=== PATIENT | male | born 1945 | race Caucasian/White ===

== ENCOUNTER 2017-10-31 09:18 | Emergency (ER) | payer OTHER, MEDICARE, BC, SELFPAY ==
[2017-10-31 09:19] VITALS: BP 154/75; PULSE 61; RESP 14; TEMP 36.4; O2SAT 99; BMI 23.5
--- NOTE | 2017-10-31 09:24 | CT_ITS ---
STUDY: CT BRAIN WITHOUT CONTRAST REASON FOR EXAM: Male, 72 years old. Dizziness. Diaphoresis and nausea. RADIATION DOSAGE (If Supplied By Facility): CTDIvol = ( 44.99 ) mGy, DLP = ( 779.24 ) mGycm TECHNIQUE: Transaxial CT imaging of the brain was performed without administration of intravenous contrast material. Individualized dose optimization techniques were used for this CT. COMPARISON: None. FINDINGS: Normal soft tissue structures. Normal calvarium. There is mild cerebral atrophy with widening of the extra-axial spaces and ventricular dilatation. Normal white matter tracts of the cerebral hemispheres. Normal basal ganglia and thalami. Normal brainstem. Normal cerebellum. There is no intracranial hemorrhage. There are no findings of an acute ischemic infarction. Normal visualized paranasal sinuses. CT/Brain/Head without Contrast IMPRESSION: Chronic involutional changes of the brain. Electronically Signed: Mitch Barraza MD at 10:39 EST Tel [phone], Service support ,
--- NOTE | 2017-10-31 09:25 | EKG12_ITS ---
Test Reason : DIZZINESS Blood Pressure : / mmHG Vent. Rate : 068 BPM Atrial Rate : 068 BPM P-R Int : 172 ms QRS Dur : 084 ms QT Int : 380 ms P-R-T Axes : 046 028 072 degrees QTc Int : 404 ms Normal sinus rhythm Nonspecific T wave abnormality Abnormal ECG Confirmed by VERITO CHIN, MYRON ([id number]), assignment editor CHEMO CHAPA ([id number]) on 11/03/2017 2:46:39 PM Referred By: HUSAM Confirmed By:MYRON SELLERS MD
--- NOTE | 2017-10-31 09:40 | RAD_ITS ---
STUDY: X-RAY CHEST REASON FOR EXAM: Male, 72 years old. Shortness of breath. Dizziness. TECHNIQUE: Single AP portable view of the chest. COMPARISON: Comparison is made with prior study dated August 10, 2017. FINDINGS: Stable elevation of the right hemidiaphragm. The lungs are clear. There is no demonstrated pleural abnormality. Normal size heart. Normal mediastinum and shirley. Normal visualized pulmonary arteries. Normal visualized aortic arch and descending thoracic aorta. Normal visualized thoracic spine. Normal visualized ribs, clavicles, and shoulders. There is no demonstrated abnormality of the visualized soft tissue structures of the upper abdomen. RAD/Chest 1 View (Portable) IMPRESSION: Elevation of the right hemidiaphragm. No acute abnormality is seen. Electronically Signed: Mitch Barraza MD at 10:05 EST Tel [phone], Service support ,
[2017-10-31 09:42] LABS: Hematocrit 44.7 % (40-54); Hemoglobin 15.4 g/dl (13.0-16.5); Mean Corp Hgb Conc 34.5 g/gl (32-36); Mean Corpuscular Hgb 30.5 pg (27.0-32.0); Mean Corpuscular Volume 88.5 fL (80-94); Mean Platelet Vol. 10.2 fl (6.2-12.0); Platelet Count 235 K/mm3 (150-450); RBC Distribution Width CV 13.2 % (11.6-14.6); RBC Distribution Width SD 42.5 fl (35.1-43.9); Red Blood Count 5.05 M/mm3 (4.6-6.2); White Blood Count 8.3 K/mm3 (4.4-11.0)
[2017-10-31 09:44] LABS: Scan Indicated on CBC? Y/N NO
--- NOTE | 2017-10-31 09:44 | ED.DCSUM_ITS ---
- ER Visit Summary Date of Service: 10/31/17 Chief Complaint: [] Dizzy since September History of Present Illness: The patient is a 72 M [] diabetes oral meds insulin as needed, hypertension, high cholesterol, reports since September he has had intermittent spells of dizziness to primarily affect him when he lays down to go to sleep he feels a constant sense of spinning sometimes the dizziness actually wakes him up. During the day he is able to go about his normal activities with very little periods of dizziness. He has no complaints of headache change in vision no mental cloudiness no chest pain abdominal pain or paresthesias. He has no history of stroke seizures ME PE DVT he has no history of any GI elements. His bowel bladder habits were normal constitutional review of systems are negative. He reports today he explains the dizziness is persisted into the morning and he came in for evaluation and again he complains of a spinning sensation. He has no complaints of tinnitus no change in vision normal mental status normal speech, he has no complaints of weakness of any kind Physical Examination: [] His vital signs are unremarkable he is resting comfortably in the bed his speech is clear and his understand his cranial nerves are negative no nystagmus excellent movements are full the TMs are clear the neck is supple moving his head and his neck does not cause dizziness heart tones are regular the abdomen is soft nontender lungs are clear upper lower extremities unremarkable he has full range of motion there is no nystagmus type movements. There is no ataxia to extremity movements he is able to stand and walk he feels a sense of dizziness but there is no ataxia he is able to walk his NIH is 0 Test Results: [] Emergency Department Course and Treatment: [] Comprehensive evaluation Since head CT EKG labs are all generally unremarkable see these reports Reevaluate him he is resting comfortably has no symptoms he feels fine and back to baseline he is not dizzy I explained to him and his that the exact etiology of this dizziness that he has had for many months is unclear we could arrange for admission for further management however he declined that stating he preferred outpatient management, he has walking aids that he can use he will avoid driving the car doing anything that could place him at risk, he will be referred to neurology Antivert and will return for change in symptoms he understands the concept of stroke and other life-threatening conditions but again he declined admission and wants to be managed as an outpatient Treatment Plan: [] Disposition: [] Home stable Impression: [] Intermittent dizziness etiology unclear patient declined admission This note was generated with [employer] dictation software. It may contain incorrect words, spelling, and punctuation that were not noted in review of the chart prior to signing ED Disposition - Plan for ED Patient: Chief Complaint: Dizziness [facility] [[facility] Care Provider] -
[2017-10-31 09:59] LABS: Anion Gap 6 (5-15); BUN 24 mg/dL (7-18); BUN/Creat Ratio 23.1 RATIO (10-20); Calcium,Total 9.5 mg/dL (8.5-10.1); Chloride 102 mmol/L (98-107); Creatinine, Serum 1.04 mg/dL (0.70-1.30); EST Glomerular Filtration Rate 75 mL/min (>60); Est Glom Filt Rate - Afr Amer 91 mL/min (>60); Estimated Creatinine Clearance 70.39 ml/min; Glucose 281 mg/dL (74-106); Sodium Level 137 mmol/L (136-145)
[2017-10-31 11:07] LABS: Bacteria 0 SEEN /hpf (None Seen); Mucous, Urine 0 SEEN /hpf (<or=2+); Red Blood Cells-Urine 0 SEEN /hpf (0-5); Squamous Epithelial Cells - UA 0 SEEN /hpf (0-5); White Blood Cells 0 SEEN /hpf (0-5)
[2017-10-31 11:09] LABS: Color, Urine Yellow (Yellow); Glucose, Dipstick 1000 mg/dl (Normal); Ketone-Dipstick Negative (Negative); Leukocyte Esterase-Dipstick Negative /ul (Negative); Nitrite-Dipstick Negative (Negative); Occult Blood-Urine Negative /ul (Negative); Protein-Dipstick Negative (Negative); Specific Gravity, Urine 1.015 (1.002-1.030); Urine Bilirubin Dipstick Negative (Negative); Urine Clarity Clear (Clear); Urine Urobilinogen Normal (Normal)
[2017-10-31 12:22] VITALS: BP 121/78; RESP 18
--- NOTE | 2017-10-31 13:11 | ED.DEP ---
ED Disposition - Plan for ED Patient: Chief Complaint: Dizziness Instructions: ED Dizziness [facility] Prescriptions: Meclizine HCl [Antivert] 25 mg PO TID PRN PRN #20 tab PRN Reason: Dizziness [facility]errals: [facility] [Primary Care Provider] - Rod Roy MD [STAFF PHYSICIAN] -
[2017-10-31 13:45] VITALS: BP 115/68; RESP 18
== END 2017-10-31 13:46 | disposition home or self-care (01) ==
PROVIDERS: Emergency Provider Emergency Medicine
DX: R42 Dizziness and giddiness (principal); E11.9 Type 2 diabetes mellitus without complications; I10 Essential (primary) hypertension; E78.00 Pure hypercholesterolemia, unspecified
CPT/HCPCS: 70450; 71045; 80048; 81001; 84484; 85027; 93005; 99283; A4216

== ENCOUNTER → 2018-03-09 08:47 | Outpatient (CLI) | payer MEDICARE, BC, OTHER, SELFPAY ==
[2018-03-09 11:01] LABS: CREATININE FINGERSTICK 0.8 mg/dL (0.70-1.30); EGFR FINGERSTICK > 60.0000 mL/min (>60)
--- NOTE | 2018-03-09 11:30 | MRI_ITS ---
STUDY: MRI BRAIN WITH AND WITHOUT CONTRAST REASON FOR EXAM: Male, 73 years old. Vertigo. TECHNIQUE: Standardized multiplanar fat and water weighted pulse sequences were obtained. 8 ml of Gadavist contrast material was administered intravenously for the contrast portion of the examination. COMPARISON: CT October 31, 2017. FINDINGS: Normal size of the ventricles and extra-axial spaces for the patient's age. There are a limited number of small white matter hyperintensities, distributed throughout the deep white matter tracts of the cerebral hemispheres, consistent with mild chronic white matter ischemic changes. There is no evidence for recent intracranial ischemia or other cause of cytotoxic edema on diffusion weighted imaging (DWI). Normal T2* images of the brain without demonstrated susceptibility artifact. There is no demonstrated hemosiderin stain. Normal bilateral basal ganglia. Normal thalami. There is no extra-axial fluid accumulation. Normal flow voids within the major intracranial circulation suggesting patency by spin echo criteria. Normal venous enhancement. There is no enhancing intra-axial or extra-axial abnormality. Normal sella turcica, pituitary gland, infundibular stalk, optic chiasm and hypothalamus. Normal tectal plate and pineal gland. Normal midbrain, brianna and medulla. Normal cerebellum. Normal basal cisterns. Normal bilateral temporal bones. Normal bilateral internal auditory canals. No demonstrated orbital abnormality, within the constraints of a routine brain study. Normal visualized paranasal sinuses. Normal calvarium and skull base. Normal visualized soft tissue structures. Normal visualized upper cervical spine. MRI/Brain W/WO Contrast IMPRESSION: Involutional changes of the brain, as described above. Electronically Signed: Armaan Leach MD at 12:08 EDT , Service support ,
--- NOTE | 2018-03-09 12:32 | EEG ---
- Electroencephalogram This is a 18 channel electroencephalogram performed on this 73-year-old male with a history of external vomiting and dizziness associated with sweating. There is no history of head injury or seizure. International 10-20 electrode placement protocol is utilized as well as hyperventilation, photic simulation and EKG reference leads. Hyperventilation is performed with good effort for 3 minutes with no lateralizing or epileptiform changes. The post hyperventilatory phase was unremarkable. The patient remained awake throughout the recording. Background activity was 8-10 Hz symmetrically in the posterior leads which attenuates with eye opening. Photic stimulation generates a normal symmetric driving response. There are no lateralizing or epileptiform changes throughout the recording. Impression: Normal electroencephalogram.
== END ==
PROVIDERS: Visit Provider Psychiatry & Neurology Neurology
DX: R56.9 Unspecified convulsions (principal); R42 Dizziness and giddiness
CPT/HCPCS: 70553; 95819; A9585

== ENCOUNTER 2023-07-14 12:03 | Emergency (ER) | payer OTHER, SELFPAY ==
[2023-07-14 12:04] VITALS: BP 113/72; PULSE 61; RESP 18; TEMP 36.4; BMI 22.3
--- NOTE | 2023-07-14 12:28 | CT_ITS ---
STUDY: CT ABDOMEN AND PELVIS WITH CONTRAST REASON FOR EXAM: Male, 78 years old. Abdominal pain, diarrhea RADIATION DOSAGE (If Supplied By Facility): CTDIvol = ( 11.31 ) mGy, DLP = ( 504.77 ) mGycm TECHNIQUE: Transaxial images were obtained from the dome of the diaphragm to the symphysis pubis without oral contrast. IV 100mL Isovue-300 was administered. Sagittal and coronal images were reconstructed. Individualized dose optimization techniques were used for this CT. COMPARISON: None. FINDINGS: Calcified granuloma in the left lower lobe. Coronary artery calcification. There is decreased attenuation of the liver consistent with steatosis. Normal gallbladder and extrahepatic biliary system. Normal spleen. Normal pancreas. Normal bilateral adrenal glands. Normal right kidney. Normal left kidney. There is a small hiatal hernia. Normal small intestine. There are multiple colonic diverticula consistent with diverticulosis. Moderate amount of fecal material is seen in the colon. The appendix is visualized and appears normal. There is scattered atherosclerotic calcification of the abdominal aorta and its major visceral branches, without a demonstrated aneurysm. Normal inferior vena cava. Normal retroperitoneum. Normal urinary bladder. There is enlargement of the prostate gland. The prostate measures 3.8 cm by 6 cm. Calcifications are seen within it. Small umbilical hernia containing fat. Small left inguinal hernia containing Normal osseous structures. CT/Abdomen/Pelvis W IV Cont ONLY IMPRESSION: Sigmoid diverticulosis. Moderate amount of fecal material is seen in the colon. Fatty infiltration of the liver. Small umbilical hernia and left inguinal narrowing containing fat. Electronically Signed: Mitch Barraza MD at 14:17 EST ,
--- NOTE | 2023-07-14 12:30 | ED.VIS.GI ---
HPI HPI - GI History of Present Illness Chief Complaint: Abd Pain Narrative Narrative: 78-year-old male who denies significant past medical history except for diabetes and hypertension presents with nausea, vomiting, and diarrhea that he has had for the last 4 days. He states his symptoms began on Monday, with nausea and vomiting. Approximately 1 day later he developed copious amounts of watery stool without any blood in his stool. He also denies any blood in his emesis. Yesterday, he went to urgent care who told him that it was most likely a virus that was running its course. He presents to the emergency department today because today he felt lightheaded, flushed, experienced nausea and vomiting, then had diarrhea again. He might have slight abdominal pain and cramping diffusely. No prior past surgical history. He denies any exacerbating or alleviating factors but states his nausea has resolved, but he is still having diarrhea. He did not have any prodromal chest pain or shortness of breath or any other symptoms prior to this. [facility] Medical History DMII (diabetes mellitus, type 2) HTN (hypertension) Home Medications glyburide 5 mg tablet 5 mg G-tube BIDCM 02/11/17 [History Last Taken 10/31/17] insulin glargine 100 unit/mL subcutaneous solution (Lantus U-100 Insulin) 10 unit SQ QHS 02/11/17 [History Last Taken 10/31/17] lisinopril 20 mg tablet (Zestril) 20 mg PO DAILY 02/11/17 [History Last Taken 10/31/17] metformin 1,000 mg tablet 1,000 mg PO BID 02/11/17 [History Last Taken 10/31/17] simvastatin 80 mg tablet 40 mg PO QHS 02/11/17 [History Last Taken 10/31/17] meclizine 25 mg tablet 25 mg PO TID PRN PRN Dizziness #20 tabs 10/31/17 [Rx Last Taken Unknown] ondansetron 4 mg disintegrating tablet 4 mg PO Q6H PRN nausea and vomiting #15 tabs 07/14/23 [Rx Last Taken Unknown] Allergy/AdvReac Type Severity Reaction Status Date / Time No Known Allergies Allergy Verified 07/14/23 12:04 Social History Smoking Status: Never smoker ROS ROS ED ROS Narrative Constitutional: No fever, no chills. HEENT: No sore throat. No neck pain. No loss of vision. No rhinorrhea. Cardiovascular: No chest pain. No palpitations. No pedal edema. Respiratory: No cough, no shortness of breath. Abdominal: Is, crampy abdominal pain. In the last 24 hours, 1 episode of nausea and vomiting without hematemesis. 1 episode of diarrhea, also nonbloody. Genitourinary: No dysuria. No hematuria. Musculoskeletal: No myalgias. No arthralgias. Neurologic: No headaches. No dizziness. Did flushed and lightheadedness and resolved. Skin: No rash. No change in color. Psychiatric: No depression. No anxiety. EXAM Physical Exam Narrative Exam Narrative: Afebrile. Vital signs noted. HEENT: Normocephalic. Atraumatic. PERRL, EOMI. Neck soft and supple. No point tenderness or step off. Moist mucous membranes. Cardiovascular: Regular rate and rhythm. No murmurs, rubs, or gallops appreciated. Respiratory: No tachypnea. Lungs clear to auscultation bilaterally. Gastrointestinal: Abdomen soft, all, diffuse tenderness with normoactive bowel sounds. No rebound or guarding. Neurological: Awake. Alert. Nonfocal, nonlateralizing. Skin: No rash. Normal color. No pallor. Musculoskeletal: No pedal edema. Full range of motion extremities. Const Vital Signs: 07/14/23 12:04 Temperature 97.5 F L Temperature Source Temporal Pulse Rate 61 Respiratory Rate 18 Blood Pressure 113/72 Blood Pressure Mean 85 Oxygen Delivery Method Room Air MDM MDM MDM Narrative Medical decision making narrative: Differential diagnosis is gastroenteritis versus colitis, I have low suspicion for diverticulitis based on his examination. He is afebrile here. I do feel CT imaging is indicated given his continued diarrhea. He could also have mild dehydration or intravascular volume depletion which caused his vasovagal episode of near syncope today. Reviewed his laboratory work and he has slightly elevated white count of 12.5 which I think is nonspecific, hemoglobin normal at 16.1, platelet count normal at 254. CMP is grossly unremarkable except for BUN slightly elevated 28 with a normal creatinine 1.08, sodium normal at 138, potassium also normal at 4.4. AST is slightly low at 9 with normal ALT of 31 with alk phos slightly elevated at 146 which I also think is nonspecific. Lipase is normal 58. I have low concern for pancreatitis as a cause of his nausea and vomiting. Urinalysis is negative for infection, I do not feel antibiotics are indicated, he has slight ketones at 15 in the urine. He was bolused normal saline 1 L intravenously. And later he requested something for nausea although initially he had declined. I reviewed the CT report of the abdomen and pelvis with IV contrast and there is no acute process. No diverticulitis or obstruction. He does have stool within the colon. He will take an [id number] stool softener. I wrote him a prescription for a few Zofran ODT's. At this point in time, I feel he can be discharged safely home with follow-up. He states he feels improved and rested. Return instructions to the emergency department were reviewed. Patient agreeable to the plan. Disposition is discharged home in stable condition. History & Record Review Discussion w/independent historian: Patient Additional record(s) reviewed:: Prior ED visit and Prior labs Lab Data Attestation: I reviewed the patient's lab results. Labs: Laboratory Results - last 24 hr 07/14/23 07/14/23 12:45 13:10 WBC 12.5 H RBC 5.23 Hgb 16.1 Hct 47.2 MCV 90.2 MCH 30.8 MCHC 34.1 RDW Std Deviation 43.1 RDW Coeff of Master 13.1 Plt Count 254 MPV 10.2 Immature Gran % (Auto) 0.400 Neut % (Auto) 65.7 Lymph % (Auto) 12.0 L [place] % (Auto) 4.6 Eos % (Auto) 16.5 H Baso % (Auto) 0.8 Absolute Neuts (auto) 8.2 H Absolute Lymphs (auto) 1.50 Nucleated RBC % 0 Sodium 138 Potassium 4.4 Chloride 103 Carbon Dioxide 28.0 Anion Gap 7 BUN 28 H Creatinine 1.08 Estim Creat Clear Calc 59.73 Est GFR (MDRD) Af Amer 85 Est GFR (MDRD) Non-Af 71 BUN/Creatinine Ratio 25.9 H Glucose 216 H Calcium 9.6 Total Bilirubin 0.50 AST 9 L ALT 31 Alkaline Phosphatase 146 H Total Protein 7.2 Albumin 3.4 Globulin 3.8 Albumin/Globulin Ratio 0.9 Lipase 58 Urine Color Yellow Urine Clarity Clear Urine pH 6.0 Ur Specific Harold 1.015 Urine Protein 15 H Urine Glucose (UA) 1000 H Urine Ketones 15 H Urine Occult Blood Negative Urine Nitrite Negative Urine Bilirubin Negative Urine Urobilinogen Normal Ur Leukocyte Esterase Negative Urine RBC 0 SEEN Urine WBC 0 SEEN Ur Squamous Epith Cells 0 SEEN Urine Bacteria 0 SEEN Urine Mucus 0 SEEN Radiography Diagnostic Testing: Clinical Impression(s) from Imaging Studies Abdomen/Pelvis CT 07/14/23 12:28 IMPRESSION: Sigmoid diverticulosis. Moderate amount of fecal material is seen in the colon. Fatty infiltration of the liver. Small umbilical hernia and left inguinal narrowing containing fat. Electronically Signed: Mitch Barraza MD at 14:17 EST , Discharge Plan Triage Chief Complaint: Abd Pain ED Provider: Tom Dimas Dx/Rx/DC Orders Clinical Impression: Nausea, vomiting, and diarrhea, Near syncope Instructions: ED Diarrhea, Unknown Cause, ED Near-Fainting, Uncertain Cause Prescriptions: New ondansetron 4 mg tablet,disintegrating 4 mg PO Q6H PRN (Reason: nausea and vomiting) Qty: 15 0RF No Action insulin glargine [Lantus U-100 Insulin] 100 UNIT/ML solution 10 unit SQ QHS glyburide 5 MG tablet 5 mg G-tube BIDCM lisinopril [Zestril] 20 MG tablet 20 mg PO DAILY simvastatin 80 MG tablet 40 mg PO QHS metformin 1,000 MG tablet 1,000 mg PO BID meclizine 25 MG tablet 25 mg PO TID PRN PRN (Reason: Dizziness) Qty: 20 0RF [facility] [Primary [facility] Provider] - 1 Week if not improving Disposition Disposition: Home, Self Care
[2023-07-14 13:00] LABS: Absolute Neutrophil Count 8.2 X10^3/uL (2.0-7.7); Basophil% 0.8 % (0-1); Eosinophils% 16.5 % (0-5); Hematocrit 47.2 % (40-54); Hemoglobin 16.1 g/dL (13.0-16.5); Mean Corp Hgb Conc 34.1 g/dL (32-36); Mean Corpuscular Hgb 30.8 pg (27.0-32.0); Mean Corpuscular Volume 90.2 fL (80-94); Mean Platelet Vol. 10.2 fl (6.2-12.0); Monocyte# 0.57 X10^3/uL; Monocyte% 4.6 % (0-10); NRBC Flagged by Analyzer 0 % (0-5); Neutrophil # 8.22 X10^3/uL (2.7-7.7); Neutrophil % 65.7 % (47-70); POSITIVE DIFFERENTIAL YES; Platelet Count 254 K/mm3 (150-450); RBC Distribution Width CV 13.1 % (11.6-14.6); RBC Distribution Width SD 43.1 fl (35.1-43.9); Red Blood Count 5.23 M/mm3 (4.6-6.2); White Blood Count 12.5 K/mm3 (4.4-11.0)
[2023-07-14 13:04] LABS: Differential Indicated SCAN CRITERIA MET; Eosinophil# 2.07 X10^3/uL
[2023-07-14] MEDS: 0.9% Normal Saline (1000mL) 1,000 ML 1000 ML IV (13:10)
[2023-07-14 13:13] LABS: ALB/GLOB Ratio 0.9 RATIO (0.9-2.4); AST(SGOT) 9 U/L (15-37); Alanine Aminotransfer ALT/SGPT 31 U/L (16-61); Albumin, Serum 3.4 g/dL (3.2-5.0); Alkaline Phosphatase 146 U/L (45-117); Anion Gap 7 (5-15); BUN 28 mg/dL (7-18); BUN/Creat Ratio 25.9 RATIO (10-20); Calcium,Total 9.6 mg/dL (8.5-10.1); Chloride 103 mmol/L (98-107); Creatinine, Serum 1.08 mg/dL (0.70-1.30); EST Glomerular Filtration Rate 71 mL/min (>60); Est Glom Filt Rate - Afr Amer 85 mL/min (>60); Estimated Creatinine Clearance 59.73 ml/min; Globulin 3.8 g/dL (2.2-4.2); Glucose 216 mg/dL (74-106); Lipase 58 U/L (13-75); Potassium 4.4 mmol/L (3.5-5.1); Protein, Total 7.2 g/dL (6.4-8.2); Sodium Level 138 mmol/L (136-145)
[2023-07-14 13:16] LABS: Bacteria 0 SEEN /hpf (None Seen); Mucous, Urine 0 SEEN /hpf (<or=2+); Red Blood Cells-Urine 0 SEEN /hpf (0-5); Squamous Epithelial Cells - UA 0 SEEN /hpf (0-5); White Blood Cells 0 SEEN /hpf (0-5)
[2023-07-14 13:23] LABS: Color, Urine Yellow (Yellow); Glucose, Dipstick 1000 mg/dl (Normal); Ketone-Dipstick 15 mg/dl (Negative); Leukocyte Esterase-Dipstick Negative /ul (Negative); Nitrite-Dipstick Negative (Negative); Occult Blood-Urine Negative /ul (Negative); Protein-Dipstick 15 mg/dl (Negative); Specific Gravity, Urine 1.015 (1.002-1.030); Urine Bilirubin Dipstick Negative (Negative); Urine Clarity Clear (Clear); Urine Urobilinogen Normal (Normal)
[2023-07-14] MEDS: Ondansetron 4 MG/2 ML Vial IV (14:22)
[2023-07-14 14:43] VITALS: BP 141/87; PULSE 89; RESP 16; O2SAT 99
== END 2023-07-14 14:45 | disposition home or self-care (01) ==
PROVIDERS: Emergency Provider Emergency Medicine; Visit Provider Emergency Medicine
DX: R11.2 Nausea with vomiting, unspecified (principal); E11.9 Type 2 diabetes mellitus without complications; I10 Essential (primary) hypertension; R55 Syncope and collapse; R19.7 Diarrhea, unspecified; K57.30 Diverticulosis of large intestine without perforation or abscess without bleeding
CPT/HCPCS: 74177; 80053; 81001; 83690; 85025; 96361; 96374; 99283; J7030; Q9967; A4216; J2405

== ENCOUNTER → 2023-07-18 | Outpatient (CLI) | payer OTHER, SELFPAY ==
--- NOTE | 2023-07-18 07:27 | US_ITS ---
EXAM: US ABDOMEN LIMITED, RIGHT UPPER QUADRANT CLINICAL INDICATION: ELEVATED LFTS TECHNIQUE: Real-time ultrasound of the right upper quadrant with image documentation. COMPARISON: CT scan of the abdomen and pelvis 07/14/2023. FINDINGS: LIVER: Liver measures 14.3 cm. Increased echogenicity of the liver. No intrahepatic biliary ductal dilation. GALLBLADDER: Unremarkable. No shadowing gallstone. No gallbladder wall thickening is demonstrated. No pericholecystic fluid. Negative sonographic Najera''s sign. COMMON BILE DUCT: Unremarkable as visualized. The proximal common bile duct is within normal limits for the patient''s age. PANCREAS: Unremarkable as visualized. No focal abnormality is demonstrated in the pancreas. No pancreatic ductal dilatation. RIGHT KIDNEY: Unremarkable. There is no hydronephrosis. No shadowing calculus. No focal lesion or perinephric collection is demonstrated. US/Abdomen Limited IMPRESSION: Fatty liver. Electronically Signed: Estevan Valencia MD at 15:57 EST ,
== END | disposition home or self-care (01) ==
DX: K76.0 Fatty (change of) liver, not elsewhere classified (principal)
CPT/HCPCS: 76705

== ENCOUNTER → 2024-09-27 | Outpatient (CLI) | payer OTHER, SELFPAY ==
--- NOTE | 2024-09-27 13:50 | CT_ITS ---
PROCEDURE: LIMITED CHEST CT CARDIAC ONLY REASON FOR EXAM: Hyperlipidemia. Coronary artery assessment. TECHNIQUE: Chest CT without contrast. COMPARISON: None. FINDINGS: Hardware: None. Lymph nodes: No mediastinal hilar or axillary lymphadenopathy. Heart and Vasculature: Minimal anterior pericardial thickening. Atherosclerotic calcifications of the thoracic aorta. Thoracic aorta and pulmonary arteries have normal contours; noncontrast technique limits evaluation. Coronary Artery Calcifications: Present Lungs and Airways: Calcified granuloma in the left lower lobe. Pleura: No pleural effusion. No pneumothorax. Upper Abdomen: Fatty infiltration of the liver. Small hiatal hernia. Bones: Bone windows are unremarkable. CT/Limited Chest CT Cardiac Only IMPRESSION: Coronary artery calcification. Minimal anterior pericardial thickening. Fatty infiltration of the liver. One or more dose reduction techniques were used (e.g., Automated exposure contr ol, adjustment of the mA and/or kV according to patient size, use of iterative reconstruction technique). Reading Location: [place] [id number]
--- NOTE | 2024-09-27 16:37 | CA.SCORE ---
Calcium Scoring Date of Study:: 09/27/24 Indications Indications: Lipid level eval Coronary Calcium Scoring: High-resolution Computed Tomographic imaging of the chest was performed on [ ], with particular attention paid to the coronary arteries. Images from the examination were analyzed for the presence and extent of coronary artery calcification , using coronary calcium quantification software. The patient tolerated the procedure well and there were no complications. The results of the coronary calcification analysis are provided below. Findings Coronary Artery Left Main (LM): 21.5 Left Anterior Descending (LAD): 223 Left Circumflex (LCX): 126 Right Coronary Artery (RCA): 0 Total Agatston Score: 370.5 Percentile Rankin%-50% Calcium Scoring Interpretation: Different methods to categorize the overall amount of coronary plaque. Overall amount CAC SIS Visual of coronary plaque P1 Mild -100 <2 1-2 vessels with mild amount of plaque P2 Moderate 101-300 3-4 1-2 vessels with moderate amount, 3 vessels with mild amount of plaque P3 Severe 301-999 5-7 3 vessels with moderate amount, 1 vessel with severe amount of plaque P4 Extensive >1000 >8 2-3 vessels with severe amount of plaque Calcium Score: Severe: 3 vessels w/moderate amount, 1 vessel w/severe amt of plaque Conclusion: Moderate amount of plaque noted in at least 2 vessels.
== END | disposition home or self-care (01) ==
PROVIDERS: Referring Provider Internal Medicine Cardiovascular Disease; Visit Provider Internal Medicine Cardiovascular Disease
DX: E78.5 Hyperlipidemia, unspecified (principal); E11.9 Type 2 diabetes mellitus without complications; I10 Essential (primary) hypertension
CPT/HCPCS: 75571; 76380

== ENCOUNTER → 2025-07-10 | Outpatient (CLI) | payer OTHER, SELFPAY ==
--- NOTE | 2025-07-10 09:56 | US_ITS ---
PROCEDURE: ABD LIMITED W/ ELASTOGRAPHY REASON FOR EXAM: ELEVATION OF LEVELS OF LIVER TRANSAMINASE LEVELS COMPARISON: Prior study dated July 18, 2023. TECHNIQUE: Procedure Code: [id number] Modality: US Procedure: ABD LIMITED W/ ELASTOGRAPHY Right upper quadrant abdominal ultrasound. [facility] ElastQ Imaging shear wave elastography for non-invasive assessment of liver tissue stiffness. [facility] EPIQ Elite. FINDINGS: LIVER: Size: Unremarkable Length: 15.4 cm Echotexture: Diffusely echogenic suggesting fatty infiltration Contour: Normal Lesions: None identified Elastography: EQI Med: 8.0 kPa EQI Med Rico: 1.6 m/s IQR/Med: 10.9 %* GALLBLADDER: Normal COMMON BILE DUCT: Normal measuring 4.6 mm . PANCREAS: Normal Visualized portions of the right kidney are unremarkable. No right upper quadrant ascites. US/ABD Limited w/ Elastography IMPRESSION: Moderate hepatic fibrosis. Fatty infiltration of the liver. Reference Values: SRU <1.37 m/s (5.7kPa): No to mild fibrosis 1.37 m/s - 2.2 m/s: Moderate to severe fibrosis >2.2 m/s (15kPa): Significant fibrosis / cirrhosis METAVIR Score F2 or higher: 1.34 m/s (5.7kPa) F3 or higher: 1.55 m/s (7.3kPa) F4: 1.80 m/s (10kPa) * If the IQR/Med is >30%, the variance in the measurements is a large and the a ccuracy of the measurement may be in question. Reading Location: [place] [id number]
== END | disposition home or self-care (01) ==
PROVIDERS: Referring Provider Internal Medicine; Visit Provider Internal Medicine
DX: R74.01 Elevation of levels of liver transaminase levels (principal)
CPT/HCPCS: 76705; 76981